=== PATIENT | female | born 1990 | race Caucasian/White ===

== ENCOUNTER 2016-11-19 09:15 | Emergency (ER) | payer OTHER ==
[~2016-11-19] VITALS: Ht 160 cm; Wt 78.9 kg
[~2016-11-19 09:15] MED LIST: [UNRECOGNIZED DRUG - OTHER]
[2016-11-19 09:20] VITALS: BP 124/59
[2016-11-19] MEDS ORDERED: AMOX500C PO (10:32)
[2016-11-19] MEDS ORDERED: CIPR7.5D EACH EAR (10:32)
--- NOTE | 2016-11-19 10:32 | PHYS DOC ---
Past Medical History Past Medical History: Anemia, Other Additional Past Medical Histor: Endometriosis, Hypoglycemia Past Surgical History: Appendectomy, Cholecystectomy, Tonsillectomy, Other Additional Past Surgical Histo: Laproscopy x 5 Alcohol Use: Rarely Drug Use: None Adult General Chief Complaint Chief Complaint: EARACHE/EAR PAIN [facility] HPI Patient is a 26 year old female presents to the emergency department with a 2 day history of bilateral ear pain and discomfort. She states the pain radiates down bilateral sides of the neck. She states that she believes she was running a fever because she's been having chills. She denies any nausea vomiting. She is . All [id number] without relief. She also states that she's been placing warm moist packs over the years with minimal relief. Congestion cough or nausea vomiting. Review of Systems Review of Systems Constitutional: subjective fever Eyes: Denies change in visual acuity, redness, or eye pain [] HENT: Denies nasal congestion or sore throat. C/o bilateral ear pain Respiratory: Denies cough or shortness of breath [] Cardiovascular: No additional information not addressed in HPI [] GI: Denies abdominal pain, nausea, vomiting, bloody stools or diarrhea [] : Denies dysuria or hematuria [] Musculoskeletal: Denies back pain or joint pain [] Integument: Denies rash or skin lesions [] Neurologic: Denies headache, focal weakness or sensory changes [] Endocrine: Denies polyuria or polydipsia [] Allergies Allergies Allergies Coded Allergies Type Severity Reaction Last Updated Verified pentazocine Allergy Unknown 09/08/13 No Physical Exam Physical Exam Constitutional: Well developed, well nourished, no acute distress, non-toxic appearance. [] HENT: Normocephalic, atraumatic, bilateral external ears normal, oropharynx moist, no oral exudates, nose normal. Lateral tympanic membranes unable to visualize due to canals being swollen. No redness noted in the canals. Patient did have increased tenderness with trying to observe the tympanic membranes. Shunt with bilateral neck tenderness. Throat with no erythematous postnasal drip was noted. Eyes: PERRLA, EOMI, conjunctiva normal, no discharge. [] Neck: Normal range of motion, no tenderness, supple, no stridor. [] Cardiovascular:Heart rate regular rhythm, no murmur [] Lungs & Thorax: Bilateral breath sounds clear to auscultation [] Skin: Warm, dry, no erythema, no rash. [] Extremities: No tenderness, no cyanosis, no clubbing, ROM intact, no edema. [] Neurologic: Alert and oriented X 3, normal motor function, normal sensory function, no focal deficits noted. [] Psychologic: Affect normal, judgement normal, mood normal. [] Current Patient Data Vital Signs Vital Signs Date Time Temp Pulse Resp B/P (MAP) Pulse Ox O2 Delivery O2 Flow Rate FiO2 11/19/16 09:20 98.5 111 16 124/59 (80) 100 Room Air 98.5 EKG EKG [] Radiology/Procedures Radiology/Procedures [] Course & Med Decision Making Course & Med Decision Making Pertinent Labs and Imaging studies reviewed. (See chart for details) Patient will be placed on Ciprodex otic solution with recommendations to use this medication very cautiously as it is a category C for . Patient will be placed on Augmentin with recommendations for Benadryl to help with congestion and pain. Recommended Tylenol [id number]. Patient will be discharged home with recommendations to follow-up with her primary care/REPLACER. Agrees with discharge instructions, treatment regimens and follow-up recommendations. Signs and symptoms to return back to the emergency department as been provided. All questions and concerns have been answered at the patient' s bedside. Dragon Disclaimer Dragon Disclaimer This electronic medical record was generated, in whole or in part, using a voice recognition dictation system. Departure Departure Impression: Primary Impression: Otalgia of both ears Disposition: 01 HOME, SELF-CARE Condition: STABLE Referrals: ADAMARIS SAUCEDO MD (PCP) Patient Instructions: Otalgia-Brief Additional Instructions: Activity as tolerated. Benadryl may be taken to help with sinus congestion. This medication will cause drowsiness do not take any be alert and oriented. Medications as prescribed. The ear drops should be used very cautiously. Do not use any longer than 5 days. Drink plenty of fluids. Follow-up with your primary care physician or your REPLACER in the next 3-5 days. Return back to emergency prior signs symptoms of become worse. Scripts Amoxicillin (AMOXICILLIN) 500 Mg Capsule 1 CAP PO BID, #20 CAP Prov: FRANCES STREETER PASSENGER SCREENER 11/19/16 Ciprofloxacin Hcl/Dexameth (CIPRODEX OTIC SUSPENSION) 7.5 Ml Drops.susp 4 DROP EACH EAR BID, #1 BOTTLE Do NOT used for more than 5 days Prov: FRANCES STREETER APRN 11/19/[address]ER APRN Nov 19, 2016 10:32
== END 2016-11-19 10:44 | disposition home or self-care (01) ==
LOC: ER 09:15
DX: H92.03 Otalgia, bilateral (principal)
CPT/HCPCS: 99283

== ENCOUNTER → 2017-10-20 | Outpatient (CLI) | payer OTHER ==
[~2017-10-20] MED LIST changes: +AMOX500C PO; +CIPR7.5D EACH EAR
--- NOTE | 2017-10-20 11:06 | KCIC ---
EXAMINATION: Magnetic resonance imaging (MRI) of the lumbar spine without contrast 10/20/2017 10:15 AM HISTORY: Left-sided sciatica. History of low back pain with left-sided sciatica for 2 weeks. TECHNIQUE: Multiplanar multi-weighted MRI of the lumbar spine was performed without intravenous contrast using the standard lumbar spine protocol. Contrast information: None administered. COMPARISON: None available. FINDINGS: The alignment of the lumbar spine is normal. Vertebral bodies demonstrate normal signal intensity on all sequences. There are no compression fractures. The conus medullaris terminates at the level of L1. The distal spinal cord signal intensity is normal. Intervertebral disks have normal height and signal intensity. There are no annular fissures identified. Limited views of the abdomen and pelvis show no soft tissue abnormality. The aorta is normal. L1-L2: The disc is normal in configuration. There is no facet arthropathy. There is no neuroforaminal stenosis. There is no spinal canal stenosis. L2-L3: The disc is normal in configuration. There is no facet arthropathy. There is no neuroforaminal stenosis. There is no spinal canal stenosis. L3-L4: The disc is normal in configuration. There is mild facet arthropathy. There is no neuroforaminal stenosis. There is no spinal canal stenosis. L4-L5: There is mild disc bulge. There is mild to moderate facet arthropathy. There is no neuroforaminal stenosis. There is no spinal canal stenosis. L5-S1: The disc is normal in configuration. There is moderate facet arthropathy. There is no neuroforaminal stenosis. There is no spinal canal stenosis. IMPRESSION: No significant disc herniation, neuroforaminal or spinal canal stenosis. Electronically signed by: Adilia Andrews MD (10/20/2017 11:02 AM) [id number]
== END | disposition home or self-care (01) ==
LOC: KCIC MRI 09:29
PROVIDERS: ATTEND Family Medicine
DX: M12.88 Other specific arthropathies, not elsewhere classified, other specified site (principal); Z72.0 Tobacco use; Z87.42 Personal history of other diseases of the female genital tract
CPT/HCPCS: 72148